=== PATIENT | female | born 1960 | race Caucasian/White ===

== ENCOUNTER 2018-07-28 17:53 | Emergency (ER) | payer OTHER ==
[~2018-07-28] VITALS: Ht 165.1 cm; Wt 79.4 kg
[2018-07-28] MEDS ORDERED: STATIN PO (18:09)
[2018-07-28] MEDS ORDERED: AUGMENTIN 875-1 EACH PO (19:14)
[2018-07-28] MEDS ORDERED: NORCO 5-325 TA1 EACH PO (19:14)
[2018-07-28 19:43] VITALS: BP 168/88
== END 2018-07-28 19:43 | disposition home or self-care (01) ==
LOC: M.ERS 17:53
DX: S61.412A Laceration without foreign body of left hand, initial encounter (principal); E78.00 Pure hypercholesterolemia, unspecified; Z88.5 Allergy status to narcotic agent; Z88.6 Allergy status to analgesic agent; W54.0XXA Bitten by dog, initial encounter; Y93.89 Activity, other specified; Y92.89 Other specified places as the place of occurrence of the external cause; Y99.8 Other external cause status